=== PATIENT | female | born 1995 | race Caucasian/White ===

== ENCOUNTER 2018-03-11 19:42 | Emergency (ER) | payer OTHER ==
[~2018-03-11] VITALS: Ht 157.5 cm; Wt 57.1 kg
[2018-03-11 19:55] VITALS: BP 123/80; Ht 157.5 cm; Wt 57.1 kg
== END 2018-03-11 22:08 | disposition home or self-care (01) ==
LOC: ED 19:42
DX: J02.9 Acute pharyngitis, unspecified (principal); B34.9 Viral infection, unspecified

== ENCOUNTER 2020-03-05 04:36 | Emergency (ER) | payer OTHER ==
[~2020-03-05] VITALS: Ht 157.5 cm; Wt 50.3 kg
[2020-03-05 04:55] VITALS: Ht 157.5 cm; Wt 50.3 kg
[2020-03-05 05:39] LABS: CALCIUM 9.5 mg/dL (8.5-10.1); CARBON DIOXIDE 30.7 mmol/L (21-32); CHLORIDE SERUM 101 mmol/L (98-107); CREATININE SERUM 0.8 mg/dL (0.6-1.0); GFR1 > 60 mL/min; GLUCOSE SERUM 106 mg/dL (74-106); POTASSIUM SERUM 4.1 mmol/L (3.5-5.1); SODIUM SERUM 138 mmol/L (136-145)
[2020-03-05 05:42] LABS: BASOPHIL % 0.3 % (0-2); PLATELET COUNT 266 x10^3mcL (130-400); RED CELL DISTRIBUTION WIDTH 13.8 % (11.5-14.5)
[2020-03-05 05:43] LABS: ALKALINE PHOSPHATASE 98 U/L (46-116); ALT/SGPT 22 U/L (14-59); AMYLASE 60 U/L (25-115); AST/SGOT 14 U/L (15-37); BILIRUBIN TOTAL 0.31 mg/dL (0.20-1.00); LIPASE 209 IU/L (73-393)
[2020-03-05 05:59] LABS: microscopic required? YES
[2020-03-05 06:00] LABS: urine erythrocyte 3+ (NEGATIVE)
[2020-03-05 06:59] VITALS: BP 120/71
== END 2020-03-05 06:59 | disposition home or self-care (01) ==
LOC: ED 04:36
PROVIDERS: Emergency Medicine
DX: N20.0 Calculus of kidney (principal)
CPT/HCPCS: J1885; J2270; J2405; J7030

== ENCOUNTER 2020-05-04 14:41 | Emergency (ER) | payer OTHER ==
[~2020-05-04] VITALS: Ht 157.5 cm; Wt 51.7 kg
[2020-05-04 15:05] VITALS: Ht 157.5 cm; Wt 51.7 kg
[2020-05-04 17:15] VITALS: BP 112/73
== END 2020-05-04 17:15 | disposition left against medical advice (07) ==
LOC: ED 14:41
DX: R10.31 Right lower quadrant pain (principal)

== ENCOUNTER 2020-05-13 16:37 | Emergency (ER) | payer OTHER ==
[~2020-05-13] VITALS: Ht 167.6 cm; Wt 53.5 kg
[2020-05-13 16:58] VITALS: BP 128/74; Ht 167.6 cm; Wt 53.5 kg
[2020-05-13 17:19] LABS: BASOPHIL % 0.4 % (0-2); PLATELET COUNT 272 x10^3mcL (130-400); RED CELL DISTRIBUTION WIDTH 13.5 % (11.5-14.5)
[2020-05-13 19:03] LABS: CALCIUM 9.7 mg/dL (8.5-10.1); CARBON DIOXIDE 27.7 mmol/L (21-32); CHLORIDE SERUM 104 mmol/L (98-107); CREATININE SERUM 0.7 mg/dL (0.6-1.0); GFR1 > 60 mL/min; GLUCOSE SERUM 89 mg/dL (74-106); POTASSIUM SERUM 4.1 mmol/L (3.5-5.1); SODIUM SERUM 142 mmol/L (136-145)
[2020-05-13 19:08] LABS: ALBUMIN 4.8 g/dL (3.4-5.0); ALKALINE PHOSPHATASE 98 U/L (46-116); ALT/SGPT 16 U/L (14-59); AST/SGOT 14 U/L (15-37); BILIRUBIN TOTAL 0.38 mg/dL (0.20-1.00); LIPASE 106 IU/L (73-393); TOTAL PROTEIN, SERUM 8.2 g/dL (6.4-8.2)
== END 2020-05-13 21:25 | disposition left against medical advice (07) ==
LOC: ED 16:37
PROVIDERS: Emergency Medicine
DX: R10.9 Unspecified abdominal pain (principal); Z13.9 Encounter for screening, unspecified

== ENCOUNTER 2020-10-04 16:18 | Emergency (ER) | payer OTHER ==
[~2020-10-04] VITALS: Ht 157.5 cm; Wt 51.7 kg
[2020-10-04 16:31] VITALS: BP 136/91; Ht 157.5 cm; Wt 51.7 kg
== END 2020-10-05 00:46 | disposition left against medical advice (07) ==
LOC: ED 16:18
DX: R10.32 Left lower quadrant pain (principal)